=== PATIENT | female | born 1950 | race Caucasian/White ===

== ENCOUNTER 2016-08-12 17:05 | Emergency (ER) | payer OTHER ==
[2016-08-12] MEDS ORDERED: oxyCODONE/Acetamin 5/325 MG* TAB PO ONE (18:05)
--- NOTE | 2016-08-12 18:10 | RAD ---
HISTORY: Multitrauma, fell off horse COMPARISONS: None TECHNIQUE: Multiple contiguous axial CT scans were obtained of the head without intravenous contrast. FINDINGS: HEMORRHAGE/INFARCT: There is no hemorrhage or acute infarct. MASSES/SHIFT: There is no mass or shift. EXTRA-AXIAL SPACES: There are no extra-axial fluid collections. SULCI AND VENTRICLES: The sulci and ventricles are normal in size and position for the patient's stated age. CEREBRUM: There are no focal parenchymal abnormalities. BRAINSTEM: There are no focal parenchymal abnormalities. CEREBELLUM: There are no focal parenchymal abnormalities. VESSELS: The vessels are grossly normal. PARANASAL SINUSES: The paranasal sinuses are clear. ORBITS: The orbits are unremarkable. BONES AND SOFT TISSUE: No bone or soft tissue abnormalities are noted. OTHER: None IMPRESSION: NO ACUTE INTRACRANIAL PATHOLOGY.
[2016-08-12] MEDS ORDERED: Morphine INJ* 2 MG/ML 1 ML SYRINGE IV ONE ×2 (18:20→20:46)
[2016-08-12] MEDS ORDERED: Ondansetron INJ* 2 MG/ML VIAL ONE (18:25)
--- NOTE | 2016-08-12 18:25 | RAD ---
HISTORY: Multiple trauma, fall off horse COMPARISONS: Plain film of the thoracic spine dated February 17, 2010 TECHNIQUE: Multiple contiguous axial CT scans were obtained of the entire spine without intravenous contrast, with coronal and sagittal multiplanar reformations. FINDINGS: Cervical: SPINAL CANAL: Evaluation of the central canal is limited on CT technique; however, there is no obvious canalicular mass or epidural hemorrhage. ALIGNMENT: The alignment is normal. VERTEBRAL BODIES: There are non displaced fractures extending through the lateral masses of C2 bilaterally and of the posterior body of C2, extending to involve the transverse foramina of C2 bilaterally. JOINTS: There is no facet subluxation or dislocation. MUSCULATURE: Unremarkable INTERVERTEBRAL DISCS: There is diffuse loss of intervertebral disc height throughout the spine. AXIAL IMAGES: On axial images, there is mild neural foraminal narrowing at C4-C5 and C5-C6. There is no significant osseous central canal stenosis. Thoracic Evaluation is limited by metallic streak artifact from spinal stabilization hardware.: SPINAL CANAL: Evaluation of the central canal is limited on CT technique, and by metallic streak artifact; however, there is no obvious canalicular mass or epidural hemorrhage. ALIGNMENT: The alignment is normal. VERTEBRAL BODIES: There is an age-indeterminate compression deformity of T12, without osseous retropulsion or extension into the posterior elements. The patient is status post spinal stabilization surgery JOINTS: There is no facet subluxation or dislocation. MUSCULATURE: Unremarkable INTERVERTEBRAL DISCS: There is diffuse loss of intervertebral disc height throughout the spine. AXIAL IMAGES: On axial images, there is no osseous neural foraminal narrowing or central canal stenosis. Lumbar: SPINAL CANAL: Evaluation of the central canal is limited on CT technique and by metallic streak artifact; however, there is no obvious canalicular mass or epidural hemorrhage. ALIGNMENT: There is grade 1 anterolisthesis of L4 on L5. VERTEBRAL BODIES: There is a defect of the superior endplate of L4 consistent with an acute compression fracture. There is no osseous retropulsion. The patient is status post spinal stabilization surgery. Additionally, there are fractures through the S2 and S4 vertebral bodies without significant displacement. JOINTS: There is diffuse facet hypertrophic change MUSCULATURE: Unremarkable INTERVERTEBRAL DISCS: There is diffuse loss of intervertebral disc height throughout the spine. AXIAL IMAGES: On axial images, there is no significant osseous central canal stenosis. There is moderate right neural foraminal narrowing at L5-S1... SOFT TISSUES: There is a right thyroid nodule measuring up to 1.2 cm. OTHER: None IMPRESSION: 1. NONDISPLACED FRACTURES THROUGH THE LATERAL MASSES AND POSTERIOR BODY OF C2 EXTENDING TO INVOLVE THE TRANSVERSE FORAMINA OF C2 BILATERALLY. 2. COMPRESSION FRACTURES OF T12 AND L4. THE T12 FRACTURE IS AGE INDETERMINATE. THE L4 FRACTURE APPEARS ACUTE. THERE IS NO OSSEOUS RETROPULSION. 3. ADDITIONALLY, THERE ARE TRANSVERSE FRACTURES THROUGH THE VERTEBRAL BODIES OF S2 AND S4. 4. PRELIMINARY FINDINGS WERE DISCUSSED WITH SALVADOR BUTCHER AT APPROXIMATELY 6:15 PM ON AUGUST 12, 2016.
[2016-08-12] MEDS ORDERED: Ondansetron INJ* 2 MG/ML VIAL IV ONE ×2 (18:37→20:53)
[2016-08-12] MEDS ORDERED: Morphine INJ* 2 MG/ML 1 ML SYRINGE ONE (18:41)
[2016-08-12] MEDS ORDERED: LORazepam INJ* 2 MG/ML 1 ML VIAL IV PUSH ONE (19:30)
[2016-08-12] MEDS ORDERED: LORazepam INJ* 2 MG/ML 1 ML VIAL ONE (19:31)
[2016-08-12] MEDS ORDERED: NS 0.9% 1000 ML* 1,000 ML IV ONE (19:59)
[2016-08-12 20:02] VITALS: BP 162/69
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
== END 2016-08-12 20:00 | disposition short-term general hospital (02) ==
LOC: ED 17:05
DX: S22.088A Other fracture of T11-T12 vertebra, initial encounter for closed fracture (principal); S12.101A Unspecified nondisplaced fracture of second cervical vertebra, initial encounter for closed fracture; S32.049A Unspecified fracture of fourth lumbar vertebra, initial encounter for closed fracture; S32.19XA Other fracture of sacrum, initial encounter for closed fracture; M54.5 Low back pain; R55 Syncope and collapse; V80.010A Animal-rider injured by fall from or being thrown from horse in noncollision accident, initial encounter; Y93.52 Activity, horseback riding; Y92.89 Other specified places as the place of occurrence of the external cause
CPT/HCPCS: 70450; 72125; 72128; 72131; 96374; 96375; 99285; J2060; J2270; J2405